=== PATIENT | female | born 1985 | race Caucasian/White ===

== ENCOUNTER 2022-08-03 04:01 | Day surgery (SDC) | payer OTHER ==
[2022-08-02 10:53] VITALS: BMI 32.5
[2022-08-03] MEDS ORDERED: BUPIVACAINE HCL/PF 0.25% (2.5MG/ML) 10 ML VIAL ONE (07:24)
[2022-08-03] MEDS ORDERED: PROPOFOL 40 ML ONE (07:36)
[2022-08-03] MEDS ORDERED: ROCURONIUM BROMIDE 50 MG/5 ML SYRINGE ONE (07:36)
[2022-08-03] MEDS ORDERED: MIDAZOLAM HCL 2 MG/2 ML SINGLE DOSE VIAL ONE (07:37)
[2022-08-03] MEDS ORDERED: HEPARIN NA (PORCINE) 5,000 UNITS/ML 1ML VIAL ONE (08:16)
[2022-08-03] MEDS ORDERED: CEFOXITIN SODIUM 2 GM IVPB ONE (08:20)
[2022-08-03] MEDS ORDERED: NEOSTIGMINE METHYLSULFATE 0.5 MG/1 ML - 10 ML MDV ONE (08:34)
[2022-08-03] MEDS ORDERED: MAGNESIUM SULF 50% (8.12 MEQ/2 ML-1 GM VIAL) ONE (08:48)
[2022-08-03] MEDS ORDERED: oxyCODONE HCL 5 MG TABLET PO PRN (09:32)
[2022-08-03] MEDS ORDERED: ACETAMINOPHEN 500 MG TABLET (FP) PO PRN (09:32)
[2022-08-03] MEDS ORDERED: ONDANSETRON 4 MG/2 ML VIAL IVPUSH PRN (09:32)
[2022-08-03] MEDS ORDERED: PROMETHAZINE HCL 25 MG/1 ML VIAL IVPB PRN (09:32)
[2022-08-03] MEDS ORDERED: ONDANSETRON 4 MG/2 ML VIAL ONE (10:37)
[2022-08-03] MEDS ORDERED: oxyCODONE HCL 5 MG TABLET ONE (13:49)
[2022-08-03 14:24] VITALS: RESP 20; TEMP 97.8
[2022-08-03 14:41] VITALS: BP 118/72; PULSE 75
== END 2022-08-03 14:20 | disposition home or self-care (01) ==
LOC: JASU-SURG 04:01
PROVIDERS: ATTEND Surgery
PROC: 0FT44ZZ Resection of Gallbladder, Percutaneous Endoscopic Approach (ICD-10-PCS; principal; 2022-08-03 08:30)
DX: K81.1 Chronic cholecystitis (principal)
CPT/HCPCS: 81025; 88304-TC; 94760; J1644